=== PATIENT | female | born 1970 ===

== ENCOUNTER → 2020-07-20 15:26 | Outpatient (BNVA) | payer OTHER, SELFPAY | PROVIDERS: Visit Provider Internal Medicine Gastroenterology | DX: Z76.89 Persons encountering health services in other specified circumstances (principal) ==

== ENCOUNTER 2020-07-27 13:34 | Outpatient (REF) | payer OTHER, SELFPAY ==
[2020-07-27 14:21] LABS: Basophils Absolute Auto 0.1 X10*3/uL (0.0-0.2); Basophils Percent Auto 0.6 % (0-2); Eosinophils Absolute Auto 0.1 X10*3/uL (0.0-0.4); Eosinophils Percent Auto 0.8 % (0-4); Hematocrit 36.3 % (37-47); Hemoglobin 12.6 g/dl (12.0-16.0); Imm Gran Abs Auto 0.03 X10*3/uL (0.00-0.03); Imm Gran Pct Auto 0.3 % (0.0-0.4); Lymphocytes Absolute Auto 5.3 X10*3/uL (1.2-4.9); Lymphocytes Percent Auto 55.9 % (20-40); MANUAL DIFF FLAG SCAN; Mean Corpuscular HGB Conc 34.7 g/dl (31.0-35.0); Mean Corpuscular Hemoglobin 30.4 pg (27.0-33.0); Mean Corpuscular Volume 87.7 fL (80-98); Mean Platelet Volume 9.9 fL (9.4-12.3); Monocytes Absolute Auto 0.6 X10*3/uL (0.1-1.2); Monocytes Percent Auto 6.3 % (2-11); Neutrophils Absolute Auto 3.4 X10*3/uL (2.0-8.3); Neutrophils Percent Auto 36.1 % (45-73); Platelet Count 271 X10*3/uL (160-400); Red Blood Count 4.14 X10*6/uL (4.20-5.50); Red Cell Distribution Width 12.1 % (11.0-16.0); SCAN SMEAR FLAG 1; White Blood Count 9.5 X10*3/uL (4.8-10.8)
[2020-07-27 14:46] LABS: Alanine Aminotransferase 88 U/L (0-31); Albumin Level 5.1 g/dL (3.5-5.0); Alkaline Phosphatase 71 U/L (39-117); Anion Gap 11 (12-20); Aspartate Amino Transferase 48 U/L (5-31); Bilirubin Total 0.3 mg/dL (0.0-1.0); Blood Urea Nitrogen 9 mg/dL (9-16); Carbon Dioxide 32 mmol/L (22-29); Chloride 97 mmol/L (96-108); Estimated Glomerular Filt Rate > 60; Glucose Random 128 mg/dL (60-115); Sodium 136 mmol/L (135-145); Total Protein 8.3 g/dL (6.5-8.0); Triglycerides 472 mg/dL
[2020-07-27 15:13] LABS: SLIDE REVIEW VERIFIED
[2020-07-28 09:07] LABS: HBsAGNum1 0.17 S/CO (0.00-0.99); Hepatitis B Surface Antigen Negative (Negative)
[2020-07-28 09:17] LABS: HBS Num1 0.81 mIU/mL (0-7.99); HBc Num1 0.06 S/CO (0.00-0.79); Hepatitis B Core Antibody Nonreactive (Nonreactive); ~Hepatitis B Surface Antibody NONREACTIVE (Nonreactive)
[2020-07-28 14:07] LABS: Transglutaminase Ab IgG 5 U/mL; Transglutaminase IgA 1 U/mL
[2020-07-28 18:28] LABS: Alpha 1 Anti-trypsin 116 mg/dL (83-199)
[2020-09-23 12:00] LABS: HCV Log PCR <1.18 NOT DETECTED; HepC Viral Load <15 NOT DETECTED
== END 2020-07-27 13:35 | disposition home or self-care (01) ==
LOC: HO.LAB 13:34
PROVIDERS: PCP Internal Medicine; Visit Provider Internal Medicine Gastroenterology
DX: E78.1 Pure hyperglyceridemia (principal); K76.0 Fatty (change of) liver, not elsewhere classified; K86.2 Cyst of pancreas
CPT/HCPCS: 36415; 80053; 82103; 83516; 84478; 85025; 86704; 86706; 87340; 87522

== ENCOUNTER → 2020-10-27 13:26 | Outpatient (BNVA) | payer OTHER, SELFPAY | PROVIDERS: PCP Internal Medicine; Visit Provider Internal Medicine Gastroenterology ==

== ENCOUNTER 2020-11-03 13:58 | Outpatient (REF) | payer OTHER, SELFPAY ==
[2020-11-03 15:01] LABS: Basophils Absolute Auto 0.1 X10*3/uL (0.0-0.2); Basophils Percent Auto 0.8 % (0-2); Eosinophils Absolute Auto 0.3 X10*3/uL (0.0-0.4); Eosinophils Percent Auto 2.8 % (0-4); Hematocrit 36.6 % (37-47); Imm Gran Abs Auto 0.04 X10*3/uL (0.00-0.03); Imm Gran Pct Auto 0.4 % (0.0-0.4); Lymphocytes Absolute Auto 5.4 X10*3/uL (1.2-4.9); Lymphocytes Percent Auto 54.4 % (20-40); MANUAL DIFF FLAG SCAN; Mean Corpuscular HGB Conc 35.5 g/dl (31.0-35.0); Mean Corpuscular Hemoglobin 31.1 pg (27.0-33.0); Mean Corpuscular Volume 87.6 fL (80-98); Mean Platelet Volume 10.2 fL (9.4-12.3); Monocytes Absolute Auto 0.5 X10*3/uL (0.1-1.2); Monocytes Percent Auto 5.5 % (2-11); Neutrophils Absolute Auto 3.6 X10*3/uL (2.0-8.3); Neutrophils Percent Auto 36.1 % (45-73); Platelet Count 309 X10*3/uL (160-400); Red Blood Count 4.18 X10*6/uL (4.20-5.50); Red Cell Distribution Width 12.7 % (11.0-16.0); SCAN SMEAR FLAG 1; White Blood Count 9.9 X10*3/uL (4.8-10.8)
[2020-11-03 15:25] LABS: SLIDE REVIEW VERIFIED
[2020-11-03 15:26] LABS: Alanine Aminotransferase 50 U/L (0-31); Albumin Level 4.9 g/dL (3.5-5.0); Alkaline Phosphatase 55 U/L (39-117); Anion Gap 13 (12-20); Aspartate Amino Transferase 33 U/L (5-31); Bilirubin Total 0.4 mg/dL (0.0-1.0); Blood Urea Nitrogen 8 mg/dL (9-16); Calcium 9.9 mg/dL (8.4-10.2); Carbon Dioxide 30 mmol/L (22-29); Chloride 101 mmol/L (96-108); Cholesterol 261 mg/dL; Estimated Glomerular Filt Rate > 60; Glucose Random 93 mg/dL (60-115); HDL Cholesterol 45 mg/dL; LDL Cholesterol Calculated 160 mg/dl; Sodium 140 mmol/L (135-145); Total Protein 7.9 g/dL (6.5-8.0); Triglycerides 283 mg/dL
[2020-11-03 15:47] LABS: Ferritin 42 ng/mL (10-250)
== END 2020-11-03 13:59 | disposition home or self-care (01) ==
LOC: HO.LAB 13:58
PROVIDERS: PCP Internal Medicine; Visit Provider Internal Medicine Gastroenterology
DX: E78.1 Pure hyperglyceridemia (principal); K76.0 Fatty (change of) liver, not elsewhere classified; K86.2 Cyst of pancreas
CPT/HCPCS: 36415; 80053; 80061; 82728; 85025

== ENCOUNTER 2020-11-17 13:00 | Outpatient (REF) | payer OTHER, SELFPAY ==
--- NOTE | ~2020-11-17 | MR_ITS ---
EXAMINATION: MR ABDOMEN WITHOUT AND WITH CONTRAST CLINICAL INFORMATION: Pancreatic cyst. COMPARISON: None. TECHNIQUE: MR abdomen was performed without and with use of 8.5 mL intravenous Gadavist gadolinium contrast. Postcontrast images are performed in multiphase dynamic sequences. Imaging was performed in 3 planes. MRCP sequences were also performed. FINDINGS: LUNG BASES: The visualized lung bases are unremarkable. LIVER, GALLBLADDER, AND BILIARY TREE: There is fatty infiltration of the liver. The liver is enlarged, right lobe measuring 20 cm in length. The liver is normal in size, shape and contour. No focal liver lesion is seen. Gallbladder is normal-appearing. There are no gallstones. There is no intrahepatic or extrahepatic biliary duct dilatation. PANCREAS: There is a complex multiloculated cystic lesion in the head of the pancreas. This measures 1.7 x 1.9 x 1.9 cm in transverse, AP and longitudinal dimension. This demonstrates multiple thin septations. No solid component or enhancement is seen. This does not appear to communicate with the main pancreatic duct. The main pancreatic duct is normal in caliber. The pancreas is otherwise normal. SPLEEN: Normal. ADRENAL GLANDS: Normal. KIDNEYS AND URETERS: The kidneys are normal in size, shape, and enhance symmetrically. No hydronephrosis. No perinephric stranding. GASTROINTESTINAL TRACT: The visualized bowel is unremarkable. The appendix is unremarkable. No ascites or fluid collection. ABDOMINAL WALL: No significant hernia is appreciated. LYMPH NODES: No lymphadenopathy. VASCULAR: Unremarkable. OSSEOUS STRUCTURES: Marrow signal normal. MR/MR abdomen wo/w con IMPRESSION: 1.7 x 1.9 x 1.9 cm multiloculated complex cystic lesion in the head of the pancreas with thin septations. This demonstrates no solid component or enhancement. Differential would include a side branch IPMN and serous cystic neoplasm. Enlarged fatty liver. Comparison will be made with outside exams when they are available.
== END 2020-11-17 13:01 | disposition home or self-care (01) ==
LOC: HO.MRI 13:00
PROVIDERS: Visit Provider Internal Medicine Gastroenterology
DX: K86.2 Cyst of pancreas (principal); K76.0 Fatty (change of) liver, not elsewhere classified; E78.1 Pure hyperglyceridemia
CPT/HCPCS: 74183; A9585

== ENCOUNTER 2021-05-31 09:11 | Outpatient (REF) | payer OTHER, SELFPAY ==
[2021-05-31 11:57] LABS: Basophils Absolute Auto 0.1 X10*3/uL (0.0-0.2); Basophils Percent Auto 0.6 % (0-2); Eosinophils Absolute Auto 0.1 X10*3/uL (0.0-0.4); Eosinophils Percent Auto 0.9 % (0-4); Hematocrit 32.1 % (37.0-47.0); Hemoglobin 11.4 g/dl (12.0-16.0); Imm Gran Abs Auto 0.03 X10*3/uL (0.00-0.03); Imm Gran Pct Auto 0.3 % (0.0-0.4); Lymphocytes Absolute Auto 5.1 X10*3/uL (1.2-4.9); MANUAL DIFF FLAG SCAN; Mean Corpuscular HGB Conc 35.5 g/dl (31.0-35.0); Mean Corpuscular Hemoglobin 31.8 pg (27.0-33.0); Mean Corpuscular Volume 89.4 fL (80.0-98.0); Mean Platelet Volume 10.3 fL (9.4-12.3); Monocytes Absolute Auto 0.5 X10*3/uL (0.1-1.2); Monocytes Percent Auto 5.8 % (2-11); Neutrophils Absolute Auto 3.2 x10*3/uL (2.0-8.3); Neutrophils Percent Auto 35.4 % (45-73); Platelet Count 260 X10*3/uL (160-400); Red Blood Count 3.59 X10*6/uL (4.20-5.50); Red Cell Distribution Width 11.9 % (11.0-16.0); SCAN SMEAR FLAG 1; White Blood Count 8.9 X10*3/uL (4.8-10.8)
[2021-05-31 12:33] LABS: SLIDE REVIEW VERIFIED
[2021-05-31 12:36] LABS: Alanine Aminotransferase 34 U/L (0-31); Albumin Level 4.7 g/dL (3.5-5.0); Alkaline Phosphatase 42 U/L (39-117); Anion Gap 13 (12-20); Aspartate Amino Transferase 23 U/L (5-31); Bilirubin Total 0.3 mg/dL (0.0-1.0); Blood Urea Nitrogen 15 mg/dL (9-16); Calcium 9.9 mg/dL (8.4-10.2); Carbon Dioxide 25 mmol/L (22-29); Chloride 106 mmol/L (96-108); Cholesterol 253 mg/dL; Estimated Glomerular Filt Rate > 60; Glucose Random 98 mg/dL (60-115); HDL Cholesterol 53 mg/dL; LDL Cholesterol Calculated 146 mg/dl; Potassium 3.9 mmol/L (3.3-5.1); Sodium 140 mmol/L (135-145); Total Protein 7.5 g/dL (6.5-8.0); Triglycerides 270 mg/dL
== END 2021-05-31 09:12 | disposition home or self-care (01) ==
LOC: HO.LAB 09:11
PROVIDERS: PCP Internal Medicine; Visit Provider Internal Medicine Gastroenterology
DX: E78.1 Pure hyperglyceridemia (principal); K76.0 Fatty (change of) liver, not elsewhere classified; K86.2 Cyst of pancreas; K75.81 Nonalcoholic steatohepatitis (NASH)
CPT/HCPCS: 36415; 80053; 80061; 85025; 99212

== ENCOUNTER 2021-06-09 13:07 | Outpatient (REF) | payer OTHER, SELFPAY ==
[2021-06-09 13:39] LABS: Basophils Absolute Auto 0.1 X10*3/uL (0.0-0.2); Basophils Percent Auto 0.6 % (0-2); Eosinophils Absolute Auto 0.1 X10*3/uL (0.0-0.4); Eosinophils Percent Auto 0.6 % (0-4); Hematocrit 33.3 % (37.0-47.0); Hemoglobin 11.9 g/dl (12.0-16.0); Imm Gran Abs Auto 0.03 X10*3/uL (0.00-0.03); Imm Gran Pct Auto 0.3 % (0.0-0.4); Lymphocytes Absolute Auto 5.8 X10*3/uL (1.2-4.9); Lymphocytes Percent Auto 51.1 % (20-40); MANUAL DIFF FLAG SCAN; Mean Corpuscular HGB Conc 35.7 g/dl (31.0-35.0); Mean Corpuscular Hemoglobin 31.4 pg (27.0-33.0); Mean Corpuscular Volume 87.9 fL (80.0-98.0); Mean Platelet Volume 9.7 fL (9.4-12.3); Monocytes Absolute Auto 0.7 X10*3/uL (0.1-1.2); Monocytes Percent Auto 6.1 % (2-11); Neutrophils Absolute Auto 4.7 x10*3/uL (2.0-8.3); Neutrophils Percent Auto 41.3 % (45-73); Platelet Count 270 X10*3/uL (160-400); Red Blood Count 3.79 X10*6/uL (4.20-5.50); Red Cell Distribution Width 11.9 % (11.0-16.0); SCAN SMEAR FLAG 1; White Blood Count 11.4 X10*3/uL (4.8-10.8)
[2021-06-09 14:02] LABS: Alanine Aminotransferase 50 U/L (0-31); Albumin Level 4.9 g/dL (3.5-5.0); Alkaline Phosphatase 48 U/L (39-117); Anion Gap 13 (12-20); Aspartate Amino Transferase 31 U/L (5-31); Bilirubin Total 0.3 mg/dL (0.0-1.0); Blood Urea Nitrogen 11 mg/dL (9-16); Calcium 10.3 mg/dL (8.4-10.2); Carbon Dioxide 28 mmol/L (22-29); Chloride 102 mmol/L (96-108); Estimated Glomerular Filt Rate > 60; Glucose Random 92 mg/dL (60-115); Iron 119 mcg/dL (30-160); Percent Iron Saturation 28 % (15-50); Sodium 139 mmol/L (135-145); Total Iron Binding Capacity 421 mcg/dL (228-428); Total Protein 7.9 g/dL (6.5-8.0); Triglycerides 209 mg/dL; Unsaturated Iron Binding 302 ug/dL
[2021-06-09 14:05] LABS: Appearance Urine CLEAR; Color Urine YELLOW; Glucose Urine UA NEG (NEG); Leukocyte Esterase Urine 2+ (NEG); Nitrite Urine NEG (NEG); Specific Gravity - Urine >= 1.030 (1.005-1.025); UACC Culture Trigger YES; Urine Blood TRACE (NEG); Urine Ketones NEG (NEG); Urine Protein 1+ MG/DL (NEG-TRACE)
[2021-06-09 14:21] LABS: SLIDE REVIEW VERIFIED
[2021-06-09 14:23] LABS: Bacteria Urine TRACE /LPF; Ferritin 79 ng/mL (10-250); Mucus Urine 1+ /LPF; RBC Urine 0-2 /HPF (0); Squamous Epithelial Cell Urine 1+ /LPF; WBC Urine 30-49 /HPF (0-4)
[2021-06-09 14:53] LABS: Folate 4.9 ng/mL (> or = 4.0)
[2021-06-09 15:28] LABS: Vitamin B12 627 pg/mL (200-900)
[2021-06-11 13:31] LABS: Haptoglobin 139 mg/dL (43-212)
[2021-06-14 15:16] LABS: Zinc 74 mcg/dL (60-130)
== END 2021-06-09 13:08 | disposition home or self-care (01) ==
LOC: HO.LAB 13:07
PROVIDERS: PCP Internal Medicine; Visit Provider Internal Medicine Gastroenterology
DX: E78.1 Pure hyperglyceridemia (principal); K75.81 Nonalcoholic steatohepatitis (NASH); K86.2 Cyst of pancreas; D64.9 Anemia, unspecified
CPT/HCPCS: 36415; 80053; 81001; 81003; 82607; 82728; 82746; 83010; 83540; 84478; 84630; 85025; 86880; 87086

== ENCOUNTER 2021-09-27 10:56 | Outpatient (REF) | payer OTHER, SELFPAY ==
[2021-09-27 12:14] LABS: MANUAL DIFF FLAG NO
[2021-09-27 12:47] LABS: Basophils Absolute Auto 0.1 X10*3/uL (0.0-0.2); Basophils Percent Auto 0.5 % (0-2); Eosinophils Absolute Auto 0.1 X10*3/uL (0.0-0.4); Hemoglobin 11.1 g/dl (12.0-16.0); Imm Gran Abs Auto 0.04 X10*3/uL (0.00-0.03); Imm Gran Pct Auto 0.4 % (0.0-0.4); Lymphocytes Absolute Auto 3.9 X10*3/uL (1.2-4.9); Lymphocytes Percent Auto 42.3 % (20-40); Mean Corpuscular HGB Conc 34.7 g/dl (31.0-35.0); Mean Corpuscular Hemoglobin 30.7 pg (27.0-33.0); Mean Corpuscular Volume 88.6 fL (80.0-98.0); Mean Platelet Volume 10.1 fL (9.4-12.3); Monocytes Absolute Auto 0.6 X10*3/uL (0.1-1.2); Monocytes Percent Auto 6.8 % (2-11); Neutrophils Absolute Auto 4.5 x10*3/uL (2.0-8.3); Platelet Count 281 X10*3/uL (160-400); Red Blood Count 3.61 X10*6/uL (4.20-5.50); Red Cell Distribution Width 12.1 % (11.0-16.0); White Blood Count 9.1 X10*3/uL (4.8-10.8)
[2021-09-27 13:13] LABS: Alanine Aminotransferase 56 U/L (0-31); Albumin Level 4.5 g/dL (3.5-5.0); Alkaline Phosphatase 46 U/L (39-117); Anion Gap 10 (12-20); Aspartate Amino Transferase 32 U/L (5-31); Bilirubin Total 0.3 mg/dL (0.0-1.0); Blood Urea Nitrogen 12 mg/dL (9-16); Calcium 10.3 mg/dL (8.4-10.2); Carbon Dioxide 28 mmol/L (22-29); Chloride 106 mmol/L (96-108); Estimated Glomerular Filt Rate > 60; Glucose Random 108 mg/dL (60-115); Iron 76 mcg/dL (30-160); Percent Iron Saturation 20 % (15-50); Potassium 4.1 mmol/L (3.3-5.1); Sodium 140 mmol/L (135-145); Total Iron Binding Capacity 387 mcg/dL (228-428); Total Protein 7.2 g/dL (6.5-8.0); Triglycerides 179 mg/dL; Unsaturated Iron Binding 311 ug/dL
[2021-09-27 13:36] LABS: Ferritin 86 ng/mL (10-250)
[2021-09-27 13:38] LABS: Folate 7.1 ng/mL (> or = 4.0); Vitamin B12 700 pg/mL (200-900)
[2021-09-29 13:36] LABS: Calcium, Ionized 5.1 mg/dL (4.8-5.6)
[2021-09-30 03:11] LABS: Zinc 73 mcg/dL (60-130)
== END 2021-09-27 10:57 | disposition home or self-care (01) ==
LOC: HO.LAB 10:56
PROVIDERS: PCP Internal Medicine; Visit Provider Internal Medicine Gastroenterology
DX: K86.2 Cyst of pancreas (principal); D64.9 Anemia, unspecified; K76.0 Fatty (change of) liver, not elsewhere classified; E78.1 Pure hyperglyceridemia
CPT/HCPCS: 36415; 80053; 82330; 82607; 82728; 82746; 83540; 84478; 84630; 85025; 99212

== ENCOUNTER → 2022-04-11 11:01 | Outpatient (BNVA) | payer OTHER, SELFPAY | PROVIDERS: PCP Internal Medicine; Visit Provider Internal Medicine Gastroenterology | DX: K76.0 Fatty (change of) liver, not elsewhere classified (principal); E78.1 Pure hyperglyceridemia | CPT/HCPCS: 99212 ==

== ENCOUNTER 2022-09-27 07:41 | Day surgery (SDC) | payer OTHER, SELFPAY ==
[2022-09-22 10:34] VITALS: BMI 26.6
[2022-09-27 08:05] VITALS: BP 152/82; PULSE 83; RESP 18; TEMP 36.2; O2SAT 98; BMI 27.8
--- NOTE | 2022-09-27 08:15 | P.HPSUR_ITS ---
Pre-Procedural Eval Section A Date of Service: 09/27/22 Section B Chief Complaint: Anemia, Relevant Family History (Specify if Yes): No Relevant Social History: Tobacco Use Present Medications: see Short Stay Collaborative assessment Medical History: Significant History (anemia, fatty liver, pancreas cyst) History of Previous Operations: Relevant previous surgery/procedure and date(s) (History of History of colonoscopy History of esophagogastroduodenoscopy (EGD)) Allergies: Allergies Allergy/AdvReac Type Severity Reaction Status Date / Time morphine Allergy Severe Shortness Verified 09/27/21 11:00 of Breath Review of Systems Sugical H&P ROS: Negative: Constitution, Cardiovascular, Respiratory, Neurological, Psychiatric, Hem-Onc, Allergic/Immunologic, Gastrointestinal, Genitourinary, Musculoskeletal, Integumentary, Endocrine and Eyes/ Ears/Nose/Throat Exam Surgical H&P Exam: Normal: HEENT, Normal: Heart, Normal: Lungs, Normal: Extremities, Normal: Abdomen, Normal: Skin and Normal: Neurological Plan Diagnosis/Plan: Unchanged I have reviewed the history and physical and performed a pertinent physical examination on my patient. No changes have occurred unless specified. Time Spent With Patient Time: Total time managing care of this patient today ____ minutes.
[2022-09-27] MEDS: Lactated Ringers 1,000 ML 50 ML IVCONT (08:38)
--- NOTE | 2022-09-27 09:52 | HO.ANESPROP2 ---
HPI - Anesthesia Eval Consult details Narrative: screening [facility] Active Problems Active Problems: All Active Problems (Updated 09/22/22 @ 10:32 by Lennie Schroeder RN) Pancreas cyst (Acute) NAFLD (nonalcoholic fatty liver disease) (Acute) Hypertriglyceridemia (Acute) Anemia (Acute) Past Medical History Medical History (Updated 09/22/22 @ 10:32 by Lennie Schroeder RN) Anemia Hypertriglyceridemia Hypothyroid NAFLD (nonalcoholic fatty liver disease) Family History Family History Father Hx of cancer of lung Mother Hx of type 2 diabetes mellitus Sister History of lung cancer in adulthood Family history of problems with anesthesia: No Surgical History Surgical History History of History of colonoscopy History of esophagogastroduodenoscopy (EGD) History of Problems with Anesthesia: No Social History Social History Household Members: Significant Other, Family, Children and Other Alcohol intake: current Alcohol intake frequency: does not drink Patient Tobacco Use Status: Current everyday Tobacco user Tobacco use type: Cigarette Cigarettes Per Day: 6 Date Education Initiated: 09/27/22 Use of substances other than those prescribed or required for medical reasons: No Are you DNR?: No Advance Directives: No Advance Directives Information Provided: Yes Meds Allergies Allergy/AdvReac Type Severity Reaction Status Date / Time morphine Allergy Severe Shortness Verified 09/27/21 11:00 of Breath Active Medications: Current Medications Lactated Ringer's (Lr) 1,000 mls @ 50 mls/hr IVCONT .Q20H LUCERO Last Admin: 09/27/22 08:38 Dose: 50 mls/hr Home Medications Medication Instructions Recorded Confirmed Last Taken Type triazolam 0.25 mg tablet 0.25 mg PO BEDTIME 09/27/21 09/27/22 Unknown History cholecalciferol (vitamin D3) 25 25 mcg PO DAILY 04/11/22 09/27/22 Unknown History mcg (1,000 unit) tablet (Vitamin D3) docusate sodium 100 mg capsule 100 mg PO BID PRN constipation 04/11/22 09/27/22 Unknown History levothyroxine 50 mcg tablet 100 mcg PO DAILY 04/11/22 09/27/22 09/27/22 History lorazepam 1 mg tablet 1 mg PO TID PRN anxiety 04/11/22 09/27/22 09/27/22 History mirtazapine 45 mg tablet 45 mg PO BEDTIME 04/11/22 09/27/22 Unknown History oxycodone 7.5 mg tablet,oral ONLY 7.5 mg PO Q8H PRN Anxiety 04/11/22 09/27/22 Unknown History (not for feeding tubes) (Oxaydo) potassium chloride 20 mEq 20 meq PO DAILY 04/11/22 09/27/22 Unknown History tablet,extended release(part/cryst) (Klor-Con M) prednisone 5 mg tablet 5 mg PO DAILY 04/11/22 09/27/22 Unknown History Exam Exam Date and Time: September 27, 2022 0952 Height,Weight and Vital Signs: Height 5 ft 9 in Weight 85.729 kg Last Vital Signs Temp 97.1 F 09/27/22 08:05 Pulse 83 09/27/22 08:05 Resp 18 09/27/22 08:05 BP 152/82 H 09/27/22 08:05 Pulse Ox 98 09/27/22 08:05 O2 Del Method 09/27/22 08:05 Airway Mallampati Class: II TM Dist: >3cm Neck ROM: Full Loose/Missing/Broken Teeth: Yes (Front rt) Heart: rr Lungs: cta Assessment and Plan Final Anesthetic Review Family History of Problems with Anesthesia: No History of Problems with Anesthesia: No NPO: Yes ASA Class: II Final Preanesthetic Review: No Changes in Pt Med Stat, Meds/Allgs Chart Reviewed, Consent Obtained/Reviewed and Anes Risks/Benef Reviewed Patient Risk: Low Procedure Risk: Low Anesthetic Plan Anesthetic Plan: MAC: Disposition: Standard PACU
--- NOTE | 2022-09-27 09:56 | W.PM.OPN ---
Operative Note Operative Note Date of Service: 09/27/22 Narrative: Operative Information Procedure Description: EGD, Colonoscopy Indication: anemia Anesthesia: MAC FLEXIBLE TRANSORAL UPPER GASTROINTESTINAL ENDOSCOPY AND COLONOSCOPY PROCEDURE NOTE UPPER ENDOSCOPY Consent: Indications for the procedure and potential complications of bleeding, perforation, reaction to medications and missed diagnosis were discussed with the patient and informed consent was obtained. Instrument: Olympus GIF H 190 J mid size upper endoscope Monitoring: Vital signs and clinical assessment, continuous EKG monitoring, Pulse oximetry, Carbon Dioxide monitoring and blood pressure monitoring were done throughout the procedure. Procedure: The patient was placed in the left lateral decubitis position and pre-procedure medications were administered and a bite block was placed. The endoscope was inserted into the mouth and advanced under direct vision to the third part of duodenum. A careful inspection was made as the upper endoscope was withdrawn including a retroflexed examination of the proximal stomach; Findings and interventions are described below. Findings: Larynx:normal Esophagus: GE junction at 40 cm, diaphragm hiatus at 42 cm, consistent with 2 cm sliding hiatal hernia, bogginess and swelling with erythema at GEJ consistent with reflux esophagitis, bx taken Stomach: Linear streaks at antrum with antral erosive gastritis. Biopsies were obtained. Grade 2 flap valve on retroflexed examination of the cardia. Duodenum: Moderate severe erosive duodenitis --bx taken Intervention: Biopsies as noted above COLONOSCOPY Instrument: Olympus variable stiffness pediatric scope 190L Colonoscopy Monitoring: Vital signs and clinical assessment, continuous EKG monitoring, Pulse oximetry, Carbon Dioxide monitoring and blood pressure monitoring were done throughout the procedure. Colon withdrawal time was 10 minutes. Procedure: The patient was placed in the left lateral decubitis position and pre-procedure medications were administered. After a digital rectal examination of the ano-rectum, the video colonoscope was inserted into the rectum and advanced through the colon to the cecum/TI. The colonoscope was slowly withdrawn in a retrograde panoramic fashion and the colon mucosa was carefully examined including a retroflexed view of the rectum. Findings and interventions are described below. Procedure Difficulty:easy Findings: Terminal Ileum-normal Cecum:normal Ascending Colon: normal Transverse Colon -normal Descending Colon:normal Sigmoid Colon: 5-7 mm sessile polyp removed with cold forceps Rectum: Retroflexion with medium sized internal hemorrhoids, grade II Anorectum - normal Colon preparation: [place] Bowel Preparation Scale Right colon; 2 Transverse colon: 2 Left colon; 2 (0 = Unprepared colon segment with mucosa not seen due to solid stool that cannot be cleared. 1 = Portion of mucosa of the colon segment seen, but other areas of the colon segment not well seen due to staining, residual stool and/or opaque liquid. 2 = Minor amount of residual staining, small fragments of stool and/or opaque liquid, but mucosa of colon segment seen well. 3 = Entire mucosa of colon segment seen well with no residual staining, small fragments of stool or opaque liquid) Impression and Post Procedure Diagnosis: Endoscopy Findings: erosive gastritis and duodenitis' esophagitis hiatal hernia Colonoscopy Findings: polyp internal hemorrhoids Plan: Await Pathology results Repeat Colonoscopy in 5-7 years if adenomatous polyp, 10 yrs if benign or earlier if clinically indicated High fiber diet leaflet avoid straining at stool, epsom salts and sitz bath, anusol supps or cream smoking cessation, confirm nsaid hx if h pylori pos then treat confirm taking PPI Above findings were reviewed with the patient and relevant handouts were provided if indicated.
[2022-09-27 09:58] VITALS: BP 94/61; PULSE 97; RESP 16; TEMP 36.1; O2SAT 98
[2022-09-27 10:13] VITALS: BP 128/81; PULSE 79; RESP 16; TEMP 36.1; O2SAT 97
--- NOTE | 2022-09-27 10:59 | P.CONAN_ITS ---
HPI - Anesthesia Eval Consult details Narrative: screening [facility] Active Problems Active Problems: All Active Problems (Updated 09/22/22 @ 10:32 by Lennie Schroeder RN) Pancreas cyst (Acute) NAFLD (nonalcoholic fatty liver disease) (Acute) Hypertriglyceridemia (Acute) Anemia (Acute) Past Medical History Medical History (Updated 09/22/22 @ 10:32 by Lennie Schroeder RN) Anemia Hypertriglyceridemia Hypothyroid NAFLD (nonalcoholic fatty liver disease) Family History Family History Father Hx of cancer of lung Mother Hx of type 2 diabetes mellitus Sister History of lung cancer in adulthood Family history of problems with anesthesia: No Surgical History Surgical History History of History of colonoscopy History of esophagogastroduodenoscopy (EGD) History of Problems with Anesthesia: No Social History Social History Household Members: Significant Other, Family, Children and Other Alcohol intake: current Alcohol intake frequency: does not drink Patient Tobacco Use Status: Current everyday Tobacco user Tobacco use type: Cigarette Cigarettes Per Day: 6 Date Education Initiated: 09/27/22 Use of substances other than those prescribed or required for medical reasons: No Are you DNR?: No Advance Directives: No Advance Directives Information Provided: Yes Meds Allergies Allergy/AdvReac Type Severity Reaction Status Date / Time morphine Allergy Severe Shortness Verified 09/27/21 11:00 of Breath Active Medications: Current Medications Lactated Ringer's (Lr) 1,000 mls @ 50 mls/hr IVCONT .Q20H LUCERO Last Infusion: 09/27/22 10:27 Dose: Infused Home Medications Medication Instructions Recorded Confirmed Last Taken Type triazolam 0.25 mg tablet 0.25 mg PO BEDTIME 09/27/21 09/27/22 Unknown History cholecalciferol (vitamin D3) 25 25 mcg PO DAILY 04/11/22 09/27/22 Unknown History mcg (1,000 unit) tablet (Vitamin D3) docusate sodium 100 mg capsule 100 mg PO BID PRN constipation 04/11/22 09/27/22 Unknown History levothyroxine 50 mcg tablet 100 mcg PO DAILY 04/11/22 09/27/22 09/27/22 History lorazepam 1 mg tablet 1 mg PO TID PRN anxiety 04/11/22 09/27/22 09/27/22 History mirtazapine 45 mg tablet 45 mg PO BEDTIME 04/11/22 09/27/22 Unknown History oxycodone 7.5 mg tablet,oral ONLY 7.5 mg PO Q8H PRN Anxiety 04/11/22 09/27/22 Unknown History (not for feeding tubes) (Oxaydo) potassium chloride 20 mEq 20 meq PO DAILY 04/11/22 09/27/22 Unknown History tablet,extended release(part/cryst) (Klor-Con M) prednisone 5 mg tablet 5 mg PO DAILY 04/11/22 09/27/22 Unknown History Exam Exam Date and Time: September 27, 2022 1059 Height,Weight and Vital Signs: Height 5 ft 9 in Weight 85.729 kg Last Vital Signs Temp 97 F 09/27/22 10:13 Pulse 79 09/27/22 10:13 Resp 16 09/27/22 10:13 BP 128/81 09/27/22 10:13 Pulse Ox 97 09/27/22 10:13 O2 Del Method 09/27/22 10:13 Airway Neck ROM: Full Heart: rr Lungs: cta Assessment and Plan Final Anesthetic Review Family History of Problems with Anesthesia: No History of Problems with Anesthesia: No NPO: Yes ASA Class: II Final Preanesthetic Review: No Changes in Pt Med Stat, Meds/Allgs Chart Reviewed, Consent Obtained/Reviewed and Anes Risks/Benef Reviewed Patient Risk: Low Procedure Risk: Low Anesthetic Plan Anesthetic Plan: MAC: Disposition: Standard PACU
== END 2022-09-27 11:10 | disposition home or self-care (01) ==
PROVIDERS: PCP Internal Medicine; Visit Provider Internal Medicine Gastroenterology
PROC: (CPT 45380; principal; 2022-09-27 08:50)
DX: D64.9 Anemia, unspecified (principal); K29.80 Duodenitis without bleeding; K44.9 Diaphragmatic hernia without obstruction or gangrene; K63.5 Polyp of colon; K64.1 Second degree hemorrhoids
CPT/HCPCS: 45380; 43239; 88305; 88342

== ENCOUNTER → 2022-10-10 12:13 | Outpatient (BNVA) | payer OTHER, SELFPAY | PROVIDERS: PCP Internal Medicine; Visit Provider Internal Medicine Gastroenterology | DX: K86.2 Cyst of pancreas (principal); K76.0 Fatty (change of) liver, not elsewhere classified; K75.81 Nonalcoholic steatohepatitis (NASH); E78.1 Pure hyperglyceridemia; K29.80 Duodenitis without bleeding; K29.70 Gastritis, unspecified, without bleeding | CPT/HCPCS: 99212 ==

== ENCOUNTER 2023-09-25 10:44 | Outpatient (AMB) | payer OTHER, SELFPAY ==
--- NOTE | 2023-09-25 11:03 | A.OFFVIS_ITS ---
Intake Vital Signs 09/25/23 11:06 Height 5 ft 9 in Weight 185 lb 3.013 oz BMI 27.3 BP 142/75 H Blood Pressure Location Lt brachial Position Sitting Pulse 83 Intake Visit Reasons: 8 month f/u RS from 08/14 Intake Note: Anirudh presents in the office as a 8 month follow up. CC: She states that she is not having any concerns at this time. 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 Required: No Allergies morphine Allergy (Severe, Verified 09/25/23 11:06) Shortness of Breath HPI 8 month f/u RS from 08/14 HPI Details 51 yr old f with hx of c section being s een for f/u RECAP: she had been having issues with low K and was getting a work up as part of w/u she had labs, imaging noted to have AST 36, ALt 41, trig 543, LFt were still high 10/2020-- put on trental LKM, FERNIE< SMA, ceruloplasmin neg A1at-- neg TTG neg hep C neg MRI with mod severe liver steatosis, CBD nml, 2.4 cm loculated cystic lesion panc head ?communicating with Pd, Pd not dilated MRI 10/2020-- cystic lesion as above, 1.7 x 1.9 cm, multi-loculated cystic leison no solid component, PD is not dilated, fatty liver pos LabS: anemia, HGB 11, EGD?colo: 09/2022 Endoscopy Findings: erosive gastritis and duodenitis' esophagitis hiatal hernia Colonoscopy Findings: polyp--hyperplastic internal hemorrhoids INTERIM: her daughter was v sick, developed TTP [place] [facility] [place] drug she feels well denies dysphagia no n/v no diarrhea or constipation she is taking lansoprazole and gabapentin which help drinking beer twice a week, 6 pack EXAM: GENERAL: The patient is well developed and nontoxic. VITAL SIGNS:see workflow HEENT: Nonicteric sclerae, PERRLA, EOMI. Oropharynx clear. Moist mucous membranes. Conjunctivae appear well perfused. No thyroid mass. CHEST: Chest wall is nontender. HEART: Regular rate and rhythm without murmurs. LUNGS: Clear to auscultation bilaterally. ABDOMEN: Soft, positive bowel sounds, nontender, no organomegaly.no flank tenderness SKIN: No rash, no excessive bruising, petechiae, or purpura. NEUROLOGIC: Cranial nerves II-XII intact without motor/sensory deficit. Assessment & Plan (1) Pancreas cyst:panc cyst, possible IP MN--side branch, no red flags right now, but persistent on imaging, i reviewed her imaging looks more like serous cyst---referred now to [facility] (2) NAFLD (nonalcoholic fatty liver dise ase):ARIAS, possibly genetic, lifestyle related (3) Hypertriglyceridemia: prob alcohol related, responding to fenofibrate, and trigs better 4/ epigastric pain, burning --resolved now, 2/2 duodenitis and gastritis, PLAN: 1/ cont with PPI and gabpaentin, change to higher dose fibrate, trigs and chol still high might need statin as well 2/ periodic monitoring of mag, b12, iron , vit D --should take multivitamin daily 3/ refer [facility] for EUS again 4/ advised on alcohol abstinence --she w [facility] Medical History (Updated 09/22/22 @ 10:32 by Lennie Schroeder RN) Hypertriglyceridemia NAFLD (nonalcoholic fatty liver disease) Hypothyroid Anemia Surgical History History of History of colonoscopy History of esophagogastroduodenoscopy (EGD) Family History Father Hx of cancer of lung Mother Hx of type 2 diabetes mellitus Sister History of lung cancer in adulthood Social History Household Members: Significant Other, Family, Children and Other Alcohol intake: current Alcohol intake frequency: does not drink Patient Tobacco Use Status: Current everyday Tobacco user Tobacco use type: Cigarette Cigarettes Per Day: 6 Physical Exam Vital Signs: Last Vital Signs Pulse 83 09/25/23 11:06 BP 142/75 H 09/25/23 11:06 BMI result Body Mass Index 27.3 Assessment & Plan Assessment & Plan (1) Anemia: Code(s): D64.9 - Anemia, unspecified Plan: PLAN: 1/ cont with PPI and gabpaentin, change to higher dose fibrate, trigs and chol still high might need statin as well 2/ periodic monitoring of mag, b12, iron, vit D --should take multivitamin daily 3/ refer [facility] for EUS again 4/ advised on alcohol abstinence --she will try (2) Pancreas cyst: Code(s): K86.2 - Cyst of pancreas Plan: PLAN: 1/ cont with PPI and gabpaentin, change to higher dose fibrate, trigs and chol still high might need statin as well 2/ periodic monitoring of mag, b12, iron, vit D --should take multivitamin daily 3/ refer [facility] for EUS again 4/ advised on alcohol abstinence --she will try (3) NAFLD (nonalcoholic fatty liver disease): Code(s): K76.0 - Fatty (change of) liver, not elsewhere classified Plan: PLAN: 1/ cont with PPI and gabpaentin, change to higher dose fibrate, trigs and chol still high might need statin as well 2/ periodic monitoring of mag, b12, iron, vit D --should take multivitamin daily 3/ refer [facility] for EUS again 4/ advised on alcohol abstinence --she will try Medications: New fenofibrate nanocrystallized 145 mg PO DAILY 30 tabs 3RF Discontinued fenofibrate nanocrystallized Discontinued Reason: Doctor's Order 48 mg PO BID 180 tabs 0RF Coding Level of Care Code Est Pt Level 4 (02614) Diagnoses Anemia D64.9 Pancreas cyst K86.2 NAFLD (nonalcoholic fatty liver disease) K76.0
[2023-09-25 11:06] VITALS: BP 142/75; PULSE 83; BMI 27.3
== END 2023-09-25 11:52 | disposition home or self-care (01) ==
PROVIDERS: PCP Internal Medicine; Visit Provider Internal Medicine Gastroenterology
DX: D64.9 Anemia, unspecified (principal); K86.2 Cyst of pancreas; K76.0 Fatty (change of) liver, not elsewhere classified
CPT/HCPCS: 99214

== ENCOUNTER → 2023-09-25 10:44 | Outpatient (BNVA) | payer OTHER, SELFPAY | PROVIDERS: PCP Internal Medicine; Visit Provider Internal Medicine Gastroenterology | DX: K76.0 Fatty (change of) liver, not elsewhere classified (principal); K86.2 Cyst of pancreas; D64.9 Anemia, unspecified | CPT/HCPCS: 99212 ==

== ENCOUNTER 2024-04-15 11:51 | Outpatient (AMB) | payer OTHER, SELFPAY ==
--- NOTE | 2024-04-15 11:59 | MHC.OFFVIS ---
Vital Signs 04/15/24 12:02 Height 5 ft 9 in Weight 185 lb BMI 27.3 BP 135/64 Blood Pressure Location Lt brachial Position Sitting Pulse 80 Intake Visit Reasons: Added Per Salvador Intake Note: Patient follow up for Anemia , added per Salvador Patient denies any GI issues for today. 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 Required: No Accompanied by: Self / Same As Patient Allergies morphine Allergy (Severe, Verified 04/15/24 11:59) Shortness of Breath HPI HPI Added Per Salvador: Details: 51 yr old f with hx of c section being seen for f/u RECAP: she had been having issues with low K and was getting a work up as part of w/u she had labs, imaging noted to have AST 36, ALt 41, trig 543, LFt were still high 10/2020-- put on trental her daughter was v sick, developed TTP and [place] [facility] [place] drug LKM, FERNIE< SMA, ceruloplasmin neg A1at-- neg TTG neg hep C neg MRI with mod severe liver steatosis, CBD nml, 2.4 cm loculated cystic lesion panc head ?communicating with Pd, Pd not dilated MRI 10/2020-- cystic lesion as above, 1.7 x 1.9 cm, multi-loculated cystic leison no solid component, PD is not dilated, fatty liver pos LabS: anemia, HGB 11, EGD?colo: 09/2022 Endoscopy Findings: erosive gastritis and duodenitis' esophagitis hiatal hernia Colonoscopy Findings: polyp--hyperplastic internal hemorrhoids INTERIM: daugher dx with lupus, and POTS otherwise feels well denies dysphagia no n/v no diarrhea or constipation she is taking lansoprazole and gabapentin which help still drinking beer socially EXAM: GENERAL: The patient is well developed and nontoxic. VITAL SIGNS:see workflow HEENT: Nonicteric sclerae, PERRLA, EOMI. Oropharynx clear. Moist mucous membranes. Conjunctivae appear well perfused. No thyroid mass. CHEST: Chest wall is nontender. HEART: Regular rate and rhythm without murmurs. LUNGS: Clear to auscultation bilaterally. ABDOMEN: Soft, positive bowel sounds, nontender, no organomegaly.no flank tenderness SKIN: No rash, no excessive bruising, petechiae, or purpura. NEUROLOGIC: Cranial nerves II-XII intact without motor/sensory deficit. Assessment & Plan (1) Pancreas cyst:panc cyst, possible IPMN--side branch, no red flags right now, but persistent on imaging, i reviewed her imaging looks more like serous cyst- (2) NAFLD (nonalcoholic fatty liver disease):ARIAS, possibly genetic, lifestyle related (3) Hypertriglyceridemia: prob alcohol related, responding to fenofibrate, and trigs better (4) epigastric pain, burning --resolved now, 2/2 duodenitis and gastritis, PLAN: 1/ cont with PPI and gabapentin, cont fibrate, 2/ periodic monitoring of mag, b12, iron, vit D --should take multivitamin daily 3/ refer pancreas center [facility] Medical History (Updated 09/22/22 @ 10:32 by Lennie Schroeder RN) Hypertriglyceridemia NAFLD (nonalcoholic fatty liver disease) Hypothyroid Anemia Surgical History History of esophagogastroduodenoscopy (EGD) History of History of colonoscopy Family History Father Hx of cancer of lung Mother Hx of type 2 diabetes mellitus Sister History of lung cancer in adulthood Social History Household Members: Significant Other, Family, Children and Other Alcohol intake: current Alcohol intake frequency: does not drink Patient Tobacco Use Status: Current everyday Tobacco user Tobacco use type: Cigarette Cigarettes Per Day: 6 Assessment & Plan Assessment & Plan (1) Hypertriglyceridemia: Code(s): E78.1 - Pure hyperglyceridemia Category: Medical Plan: see above Orders: Orders Lipid Panel with Reflex Today E78.1 - Pure hyperglyceridemia Coding Level of Care Code Est Pt Level 3 (58235) Diagnoses Hypertriglyceridemia E78.1
[2024-04-15 12:02] VITALS: BP 135/64; PULSE 80; BMI 27.3
== END 2024-04-15 12:22 | disposition home or self-care (01) ==
PROVIDERS: PCP Internal Medicine; Visit Provider Internal Medicine Gastroenterology
DX: E78.1 Pure hyperglyceridemia (principal)
CPT/HCPCS: 99213

== ENCOUNTER → 2024-04-15 11:51 | Outpatient (BNVA) | payer OTHER, SELFPAY | PROVIDERS: PCP Internal Medicine; Visit Provider Internal Medicine Gastroenterology | DX: E78.1 Pure hyperglyceridemia (principal) | CPT/HCPCS: 99212 ==

== ENCOUNTER 2024-08-23 12:36 | Outpatient (REF) | payer OTHER, SELFPAY ==
--- NOTE | ~2024-08-23 | MR_ITS ---
CLINICAL HISTORY: K86.2 - Cyst of pancreas MR abdomen with and without gadolinium Comparison: MR - MR ABDOMEN WO/W CON - 11/17/20 13:22 EDT Findings: Lung bases are clear. Heart size is normal. Liver is enlarged. There is diffuse signal dropout within the hepatic parenchyma on out of phase gradient echo sequences. Liver otherwise is within normal limits. 22 mm craniocaudal multi-cystic high T2 intensity focus within the pancreatic head/neck is unchanged, without internal enhancement. Pancreatic duct is normal in caliber. Biliary tree and gallbladder are normal in caliber. Spleen, adrenals, and kidneys are within normal limits. Visualized bowel loops and vasculature within normal limits. Visualized osseous structures are normal in appearance. IMPRESSION: 1. 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 Follow-up MRI in 1 year recommended. 2. Hepatic steatosis This document has been electronically signed by: Tegan Costa MD on 08/23/2024 17:40:54
--- OUTSIDE RECORDS SUMMARY | 2024-08-23 12:56 | XMS_ITS | Continuity of Care Document ---
Author Organization [place] - [facility], [facility] Address [address] [place] [address] Care Team Providers Care Prosthetics Technician Name Role Phone LANIE SHANKS Primary Care Provider Assessment Encounter Date Assessment Date Assessment LastModified by Organization Details LastModified Time 08/08/2024 08/08/2024 53-year-old female presents for cerumen removal. Cerumen impaction removed bilaterally. Bilateral TMs are intact with aerated middle ear spaces. Follow-up in 3 months for routine debridement. Patient with epistaxis. On exam, enlarged arterioles were noted on the anterior septum bilaterally. Nasal cautery was offered today, but patient declined. We discussed basic epistaxis precautions including avoidance of nose blowing, nose picking, straining, heavy lifting, exertion, bending forward, and sneezing with the mouth open for 1-2 weeks. I recommended use of nasal saline spray 5-6 times daily and a water-based lubricant, such as KY Jelly, intranasally 3 times a day. If the bleeding continues or worsens, the patient was instructed to call the office for reevaluation. [email or web address] Not available 08/08/2024 09:33:33 Plan of Treatment Reminders Order Date Submit Date Provider Last Modified By Organization Details Last Modified Time Details Appointments Establish ed 15 2024 01:00P M SONAL VALDES PA-C Not available Not available Not available Establish ed 15 2024 01:00P M SONAL VALDES PA-C Not available Not available Not available Establish ed 15 2024 01:00P M SONAL VALDES PA-C Not available Not available Not available Lab None recorded. Referral None recorded. Procedures None recorded. Surgeries None recorded. Imaging None recorded. Medication Orders None recorded. Patient TargetsNo targets recorded. Patient InstructionsNo instructions recorded. Reason for Referral None Reported. Problems Name Problem SNOMED Code Status Onset Date Resolution Date Notes Provider Name and Address Organization Details Recorded Time Impacted cerumen of bilateral ears 29622723255 33422 Active 2019 Impacted cerumen, bilateral ; Note: Date Diagnosed : 04/08/2020 3:34 PM (H61.23) Not Available [facility] 4 03:31:22 Anterior epistaxis 298133712 Active 2024 SONAL VALDES PA-C [address] [place] [address],[address], [address] , [facility] - [facility] 5 09:32:55 Problem Notes None recorded. Procedures Surgical History Date Name Laterality Status Provider Name and Address Organization Details Recorded Time 5 Cerumen removal without microscope bilat completed OSNAL VALDES PA-C [address] [place] [address],[address], [phone], [facility] - [facility] 08/08/2024 09:00:56 4 Cerumen removal without microscope bilat completed FERN PLATA PA-C [address] [place] [address],[address], [phone], [facility] 05/16/2024 14:23:23 4 Cerumen removal without microscope bilat completed SONAL VALDES PA-C [address] [place] [address], [phone], [facility] 01/01/2024 14:29:30 Imaging Results None recorded. Procedure Notes None recorded. Medical Equipment None Reported. Allergies Allergen ID Allergen Name Allergen Category Reaction Reaction Severity Criticality Documentation Date Start Date Code Code System Note Provider Name and Address Organization Details Recorded Time 30331 morphine medicatio n other Not available Not available 12/05/2023 7052 RxNorm React ion: unkno wn, unspe cifie d;; Not Available [facility] 4 00:50:25 Medications Name Sig Start Date Stop Date Status Note LastModified by Organization Details LastModified Time prednisone 5 mg tablet 05/18 completed Medication ID: [id number] Dur ation Value: 30 Brand Name: prednisone Send Method: E-Prescrib ed Subs Allowed: subs OK Special Instructio n: TAKE 1 TABLET BY MOUTH EVERY DAY MAY TAKE 2 3 TABS USUAL DAILY DOSE NEEDED FOR ILLNESS Me dicationGe nericName: prednisone Not Available Not Available Not Available pentoxifyll ine ER 400 mg tablet,exte nded release active Medication ID: [id number] Dominique nd Name: pentoxifyl line Send Method: E-Prescrib ed Subs Allowed: subs OK Medicat ionGeneric Name: pentoxifyl line Not Available Not Available Not Available famotidine 20 mg tablet active Medication ID: [id number] Dominique nd Name: famotidine Send Method: E-Prescrib ed Subs Allowed: subs OK Medicat ionGeneric Name: famotidine Not Available Not Available Not Available lorazepam 0.5 mg tablet active Medication ID: [id number] Dominique nd Name: lorazepam Send Method: E-Prescrib ed Subs Allowed: subs OK Medicat ionGeneric Name: lorazepam Not Available Not Available Not Available levothyroxi ne 50 mcg tablet active Medication ID: [id number] Dominique nd Name: levothyrox ine Send Method: E-Prescrib ed Subs Allowed: subs OK Medicat ionGeneric Name: levothyrox ine Not Available Not Available Not Available lansoprazol e 30 mg capsule,del ayed release active Medication ID: [id number] Dominique nd Name: lansoprazo le Send Method: E-Prescrib ed Subs Allowed: subs OK Medicat ionGeneric Name: lansoprazo le Not Available Not Available Not Available docusate sodium 100 mg capsule active Medication ID: [id number] Dominique nd Name: docusate sodium Sen d Method: E-Prescrib ed Subs Allowed: subs OK Medicat ionGeneric Name: docusate sodium Not Available Not Available Not Available mirtazapine 45 mg tablet active Medication ID: [id number] Dominique nd Name: mirtazapin e Send Method: E-Prescrib ed Subs Allowed: subs OK Medicat ionGeneric Name: mirtazapin e Not Available Not Available Not Available Vitamin D3 25 mcg (1,000 unit) tablet active Medication ID: [id number] Dominique nd Name: Vitamin D3 Send Method: E-Prescrib ed Subs Allowed: subs OK Medicat ionGeneric Name: Vitamin D3 Not Available Not Available Not Available Klor-Con M20 mEq tablet,exte nded release active Medication ID: [id number] Dominique nd Name: Klor-Con M20 Send Method: E-Prescrib ed Subs Allowed: subs OK Medicat ionGeneric Name: Klor-Con M20 Not Available Not Available Not Available fenofibrate nanocrystal lized 48 mg tablet active Medication ID: [id number] Bra nd Name: fenofibrat e nanocrysta llized Sen d Method: E-Prescrib ed Subs Allowed: subs OK Medicat ionGeneric Name: fenofibrat e nanocrysta llized Not Available Not Available Not Available Vitals Date Recorded Body height Body mass index (BMI) Body weight Provider Name and Address Organization Details Last Updated DateTime 08/08/2024 175.26 cm 26.6 kg/m2 22200.63 g Maritza Miller [place] - [facility] 08/08/2024 09:06:24 Social History None recorded. Functional Status None recorded. Mental Status None recorded. Family History Nothing Reported. Medical History Condition Response Allergies/Hayfever N Heart Problems N Anxiety Y Tonsil Infections N Emphysema N Migraines N Thyroid Problems Y Depression N COPD N Developmental Delay N Glaucoma N Nasal or Sinus Problems N Anemia N Immune System Disorder N Anesthesia Complications N Heart Attack ([place]) N Other Skin Condition N Diabetes N Rhinitis N Bleeding Disorder N Food Allergy N Hearing Loss N Arthritis N Hyperlipidemia N Cancer N Stroke N Dementia N Nasal polyps N Asthma N Sleep Disorder N High Cholesterol Y GERD/Reflux N Liver Disease N Headaches N Fibromyalgia N Hypertension N Speech Delay N Kidney Disease N Gynecological HistoryNo gynecological history recorded. Obstetrics History GPAL:G 0 P 0 0 0 0 Past Encounters Encounter ID Performer Location Encounter Start Date Encounter Closed Date Diagnosis/Indication Diagnosis SNOMED-CT Code Diagnosis ICD10 Code Diagnosis Note [id number] PORSCHE KEENE MD [facility] [address] [address] 08/08/2024 09:01:33 08/08/2024 09:28:19 Impacted cerumen of bilateral ears [id number] 216232 H61.23 Anterior epistaxis 58381 4002 R04.0 Health Concerns Section Related Observation LastModified by Organization Detai ls LastModified Time None Recorded Concern Status LastModified by Organization Details LastModified Time None Recorded Payers Encounter Date Sequence Insurance Name Policy Number Policy Lopes Covered Member ID Lopes Member ID Guarantor Name 08/08/2024 1 [facility] (MEDICAID HMO) [id number] Anirudh Cervantes [id number] Anirudh Cervantes Notes Date Note Type Note Provider Name and Address Organization Details Recorded Time 08/08/2024 text/html 53 year old female presents for an ear cleaning. No concerns today. Also reports right sided epistaxis yesterday. Has been having nose bleeds for the past few weeks. Denies use of nasal sprays. Denies use of blood thinners. Bleeding stopped within 20 minutes. PORSCHE KEENE MD [address] [place] [address], [id number] [place] - [facility] 08/08/2024 17:14:38 OBGyn Episode No OBEpisode recorded.
--- OUTSIDE RECORDS SUMMARY | 2024-08-23 12:56 | XMS_ITS | Clinical Summary ---
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 DX:Hypopituitarism due to pi tuitary tumor (HCC); COMMENT: Concepcion hypopit Family History Medical History Relation Name Comments Diabetes Mother Hypertension Mother Relation Name Status Comments Father Mother Alive Social History Tobacco Use Types Packs/Day Years Used Date Smoking Tobacco: Former Smokeless Tobacco: Never Alcohol Use Standard Drinks/Week Comments Not Asked 0 (1 standard drink = 0.6 oz pur e alcohol) Sex and Gender Information Value Date Recorded Sex Assigned at Not on file Gender Identity Not on file Sexual Orientation Not on file Obstetrics History Plan of Treatment Health Maintenance Due Date Last Done Comments DTaP,Tdap,and Td Vaccines (1 - Tdap) 11/16/1987 Hepatitis B Vaccines (1 of 3 - 19+ 3-dose series) 11/16/1987 Cervical Cancer Screening: P ap Smear 1989 Zoster Vaccines (1 of 2) 2018 Colorectal Cancer Screening: Colonoscopy 06/26/2022 Depression Screening 06/26/2022 HIV Screening 06/26/2022 Hepatitis C Screening 06/26/2022 Social Influencers of Health Screening 06/26/2022 COVID-19 Vaccine (1 - 2023-2 5 season) 2024 Influenza Vaccine (#1) 2024 Breast Cancer Screening 09/23/2024 09/23/2022 HIB Vaccines Aged Out No longer eligi ble based on patient's age to complete this topic HPV Vaccines Aged Out No longer eligi ble based on patient's age to complete this topic Hepatitis A Vaccines Aged Out No long er eligible based on patient's age to complete this topic IPV Vaccines Aged Out No longer eligi ble based on patient's age to complete this topic MMR Vaccines Aged Out No longer eligi ble based on patient's age to complete this topic Meningococcal ACWY Vaccine Aged Out N o longer eligible based on patient's age to complete this topic Pneumococcal Vaccine: Pediat rics (0 to 5 Years) and At-Risk Patients (6 to 64 Years) Aged Out No longer eligi ble based on patient's age to complete this topic RSV Immunization Patients Un zafar 20 months Aged Out No longer eligible b ased on patient's age to complete this topic Varicella Vaccines Aged Out No longer eligible based on patient's age to complete this topic Procedures Procedure Name Priority Date/Time Associated Diagnosis Comments [facility] SCREENING DIGITAL Routine 09/23/2022 3:36 PM EST Encounter for screening mammogram for malignant neoplasm of breast from Last 3 Months or Most Recently Relevant to Health Maintenance Results * [facility] SCREENING DIGITAL (09/23/2022 3:36 PM EST) Anatomical Region Laterality Modality Mammography 09/21/2022 3:04 PM EST Narrative 09/23/2022 3:36 PM EST [facility] Diagnostic Imaging Department [address] [place] [address] [id number] Patient: ??ANIRUDH BRADEN ?/Age/Sex: 1970 - 51 - F Unit#: ??[id number] ? Location/Status: ??SPDIMAM/REG CLI ? Mnemonic/Ordering Site: ??DIGSC/SPMAM Ordering Physician: ??MITCHEL DUNN MD Treva Screening Digital - 09/21/22 - 1525 INDICATION: SCREENING COMPARISON: Outside mammograms dating back to 05/02/2017 TECHNIQUE: CC and MLO views of the breasts were obtained, using full field digital mammography with 3D tomosynthesis views in the MLO projection. Computer aided detection with the Granicus 7.2-H was employed. FINDINGS: The breast tissue is extremely dense, lowering sensitivity of mammography in this patient. No suspicious masses, suspicious microcalcifications, or areas of architectural distortion are identified. ??There are no secondary signs of breast malignancy. IMPRESSION: ??No specific mammographic evidence of breast malignancy. Lack of an imaging correlate should not deter or delay biopsy of a clinically significant palpable finding. BI-RADS ??- Category 1: Negative 3341F, 7025F Annual screening mammography is recommended. Patient entered into a reminder system with a target date for the next mammogram. ([id number] / [id number]) , ??[id number] Dictating Physician: ??ABDIRAHMAN PETERSEN MD Electronically Signed by: ??ABDIRAHMAN PETERSEN MD Dic Date/Time: ??09/23/22 1530 Sign date/Time: ??09/23/22 1536 Procedure Note Abdirahman Petersen MD - 08/25/2023 [facility] Diagnostic Imaging Department [address] [place] [id number] Patient: ANIRUDH BRADEN /Age/Sex: 1970 - 51 - F Unit#: [id number] Location/Status: SPDIMAM/REG CLI Mnemonic/Ordering Site: [facility] Ordering Physician: MITCHEL DUNN MD Treva Screening Digital - 09/21/22 - 1525 INDICATION: SCREENING COMPARISON: Outside mammograms dating back to 05/02/2017 TECHNIQUE: CC and MLO views of the breasts were obtained, using full field digital mammography with 3D tomosynthesis views in the MLO projection. Computer aided detection with the Granicus 7.2-Response [employer] was employed. FINDINGS: The breast tissue is extremely dense, lowering sensitivity of mammographyin this patient. No suspicious masses, suspicious microcalcifications, or areas ofarchitectural distortion are identified. There are no secondary signs of breastmalignancy. IMPRESSION: No specific mammographic evidence of breast malignancy. Lack of an imaging correlate should not deter or delay biopsy of aclinically significant palpable finding. BI-RADS - Category 1: Negative 3341F, 7025F Annual screening mammography is recommended. Patient entered into a reminder system with a target date for the next mammogram. [id number]) , [id number] Dictating Physician: ABDIRAHMAN PETERSEN MD Electronically Signed by: ABDIRAHMAN PETERSEN MD Dic Date/Time: 09/23/22 1530 Sign date/Time: 09/23/22 1538 Mitchel Dunn MD IMG BI PROCEDURES from Last 3 Months or Most Recently Relevant to Health Maintenance Care Teams Instrumentation Chemist Relationship Specialty Start Date End Date Magui Rojo MD [address] [place] [address] [place] PCP - General Internal Medicine 01/05/21
[2024-08-23] MEDS: gadobutroL 10 ML VIAL IVPUSH (13:26)
== END 2024-08-23 12:37 | disposition home or self-care (01) ==
LOC: HO.MRI 12:36
PROVIDERS: Visit Provider Internal Medicine Gastroenterology
DX: K86.2 Cyst of pancreas (principal)
CPT/HCPCS: 74183; A9585

== ENCOUNTER → 2024-08-23 12:43 | Outpatient (BNV) | payer OTHER, SELFPAY | PROVIDERS: Visit Provider Radiology Diagnostic Radiology | DX: K86.2 Cyst of pancreas (principal) | CPT/HCPCS: 74183 ==